=== PATIENT | male | born 1990 | race African-American/Black ===

== ENCOUNTER 2016-12-12 06:10 | Emergency (ER) | payer MEDICAID ==
[~2016-12-12] VITALS: Ht 177.8 cm; Wt 81.6 kg
[2016-12-12 07:08] LABS: Basophils # (auto) 0 uL; Basophils % (auto) 0.1 % (0.0-2.0); Eosinophils # (auto) 0.1 uL; Eosinophils % (auto) 1.1 % (0.0-7.0); Hematocrit 32.5 % (41.0-53.0); Hemoglobin 10.6 g/dL (13.5-17.5); Lymphocytes % (auto) 9.1 % (10.0-50.0); Mean Corpuscular Hemoglobin 28.8 pg (28.0-32.0); Mean Corpuscular Hgb Conc. 32.7 g/dL (32.0-36.0); Mean Platelet Volume 6.8 fL (7.4-10.4); Monocytes % (auto) 9.2 % (0.0-12.0); Neutrophils # (auto) 8.5 uL; Neutrophils % (auto) 80.5 % (37.0-80.0); Platelet Count (auto) 395 10^3/uL (140-450); Red Cell Distribution Width 16.1 % (11.6-16.0); White Blood Cell 10.6 10^3/uL (4.4-10.8)
[2016-12-12 07:26] LABS: INR 1.11 (0.9-1.15); Prothrombin Time 11.4 sec (9.37-12.3)
[2016-12-12 07:40] LABS: Albumin 3.5 g/dL (3.4-5.0); Alkaline Phosphatase 84 U/L (45-117); Anion Gap 8 (5-15); Aspartate Aminotransferase 37 U/L (15-37); Bilirubin, Total 0.6 mg/dL (0.2-1.0); Blood Urea Nitrogen 16 mg/dL (7-18); Calcium 9.3 mg/dL (8.5-10.1); Carbon Dioxide 28 mmol/L (21-32); Chloride 102 mmol/L (98-107); GFR African American 131 mL/min; GFR Non-African American 108 mL/min; Glucose 98 mg/dL (74-106); Potassium 3.7 mmol/L (3.5-5.1); Sodium 138 mmol/L (136-145); Total Protein 8.5 g/dL (6.4-8.2)
[2016-12-12 08:37] VITALS: BP 127/76
[2016-12-12] MEDS ORDERED: cefTRIAXone W LIDOCAINE 1 GM IM IM ONE (10:00)
== END 2016-12-12 09:49 | disposition home or self-care (01) ==
LOC: ER 06:17
DX: R07.89 Other chest pain (principal); J40 Bronchitis, not specified as acute or chronic; F17.210 Nicotine dependence, cigarettes, uncomplicated
CPT/HCPCS: 36415; 71020; 74176; 80053; 84484; 85025; 85610; 87040; 93005; 96372; 99285; J0696

== ENCOUNTER 2017-07-29 23:48 | Emergency (ER) | payer MEDICAID ==
[~2017-07-29] VITALS: Ht 180.3 cm; Wt 83.9 kg
[2017-07-30 00:11] VITALS: BP 118/85
[2017-07-30] MEDS ORDERED: IBUPROFEN 600 MG TAB PO ONE (01:37)
== END 2017-07-30 02:20 | disposition home or self-care (01) ==
LOC: ER 23:54
DX: M79.644 Pain in right finger(s) (principal); M79.5 Residual foreign body in soft tissue; F17.210 Nicotine dependence, cigarettes, uncomplicated
CPT/HCPCS: 73140

== ENCOUNTER 2022-04-22 18:35 | Emergency (ER) | payer MEDICAID ==
[~2022-04-22] VITALS: Ht 180.3 cm; Wt 83.9 kg
[2022-04-22 18:58] VITALS: BP 122/82
[2022-04-22] MEDS ORDERED: ACYC-166 PO (20:03)
[2022-04-22] MEDS ORDERED: IBUP800T27 PO (20:03)
== END 2022-04-22 20:08 | disposition home or self-care (01) ==
LOC: ER 18:35
DX: B02.9 Zoster without complications (principal); F17.210 Nicotine dependence, cigarettes, uncomplicated; Z79.1 Long term (current) use of non-steroidal anti-inflammatories (NSAID); Z79.899 Other long term (current) drug therapy
CPT/HCPCS: 71045